=== PATIENT | female | born 1960 | race Caucasian/White ===

== ENCOUNTER 2016-05-14 01:33 | Inpatient (IN) | payer OTHER ==
[2016-05-14] VITALS (12 sets, daily range): BP systolic 124–137; BP diastolic 62–78; PULSE 68–95; RESP 16–20; Ht 177.8 cm; Wt 95.8 kg
[~2016-05-14] VITALS: Ht 177.8 cm; Wt 95.8 kg
[2016-05-14] MEDS ORDERED: CALCIUM CARBONATE 500 MG CHEW TAB PO PRN (03:00)
[2016-05-14] MEDS ORDERED: ACETAMINOPHEN 325 MG TAB PO PRN (03:00)
[2016-05-14] MEDS ORDERED: morphine 4 MG/ML VIAL IV PRN (03:00)
[2016-05-14] MEDS ORDERED: ONDANSETRON 4 MG INJ IV PRN (03:00)
[2016-05-14] MEDS ORDERED: IBUP800T25 PO (03:52)
[2016-05-14] MEDS ORDERED: VANCOMYCIN IV PER PHARMACY XX SCH (04:00)
[2016-05-14] MEDS: CEFTRIAXONE 1 GM/50 ML (PMX) 50 ML IVPB SCH ×2 (04:39→04:45)
[2016-05-14] MEDS ORDERED: VANCOMYCIN 2 GM in SOD CHLORIDE 0.9% 500 ML IVPB ONE (05:00)
[2016-05-14] MEDS ORDERED: VANCOMYCIN 1 GM in NS 250 ML IVPB SCH (05:00)
[2016-05-14 05:20] LABS: ALBUMIN 2.7 g/dl (3.3-4.9)
[2016-05-14 05:21] LABS: POTASSIUM 3.9 mmol/L (3.5-5.1)
[2016-05-14 05:23] LABS: ALBUMIN/GLOBULIN RATIO 0.9; BILIRUBIN,INDIRECT 0.1 mg/dl (0-1.1); BILIRUBIN,TOTAL 0.1 mg/dl (0.2-1.3); CALCIUM 8.4 mg/dl (8.4-10.2); CREATININE 0.66 mg/dl (0.44-1.00); TOTAL PROTEIN 5.7 g/dl (6.1-8.1)
[2016-05-14 06:14] LABS: EOSINOPHILS # 0.2 10^3/ul (0.0-0.5); EOSINOPHILS % 2.2 % (0.0-7.0); HEMATOCRIT 29.3 % (37.0-47.0); HEMOGLOBIN 9.5 g/dl (12.0-16.0); LYMPHOCYTES # 1.9 10^3/ul (0.8-2.9); LYMPHOCYTES % 17.8 % (15.0-51.0); MEAN CORPUSCULAR HGB CONC 32.5 g/dl (32.0-37.0); MEAN CORPUSCULAR VOLUME 76.9 fl (82.0-101.0); MEAN PLATELET VOLUME 9.1 fl (7.4-10.4); MONOCYTE # 0.9 10^3/ul (0.3-0.9); MONOCYTES % 7.8 % (0.0-11.0); NEUTROPHIL # 7.9 10^3/ul (1.6-7.5); NEUTROPHILS % 72.2 % (39.0-77.0); PLATELET COUNT 322 10^3/UL (140-440); RED BLOOD COUNT 3.81 10^6/ul (4.20-5.40); RED CELL DISTRIBUTION WIDTH 16.9 % (11.5-14.5); UNCORRECTED WBC 10.9 10^3/ul (4.8-10.8); WHITE BLOOD COUNT 10.9 10^3/ul (4.8-10.8)
[2016-05-14 06:18] LABS: CONDITION 1; LH ANALYZER COMMENTS 1
[2016-05-14 07:38] LABS: ADD UMIC YES; URINE BILIRUBIN (Dip) NEGATIVE (NEGATIVE); URINE BLOOD (Dip) 1+ (NEGATIVE); URINE COLOR LT. YELLOW (YELLOW); URINE GLUCOSE (Dip) NEGATIVE (NEGATIVE); URINE KETONES (Dip) NEGATIVE (NEGATIVE); URINE LEUKOCYTE ESTERASE (Dip) TRACE (NEGATIVE); URINE NITRITE (Dip) NEGATIVE (NEGATIVE); URINE TOTAL PROTEIN (Dip) NEGATIVE (NEGATIVE); URINE UROBILINOGEN (Dip) 0.2 E.U./dL (0.1-1.0)
[2016-05-14 08:07] LABS: BACTERIA,URINE FEW; URINE RBCS 0-2 /HPF (0)
[2016-05-14] MEDS: FAMOTIDINE 20 MG TAB PO SCH ×2 (09:27→21:17)
[2016-05-14] MEDS: ENOXAPARIN 40 MG/0.4 ML SYG SC SCH (09:32)
[2016-05-14 10:37] LABS: CHOL/HDL RATIO 4.2 RATIO
--- NOTE | 2016-05-14 12:53 | CONS ---
DATE OF ADMISSION: 05/14/2016 DATE OF CONSULTATION: 05/14/2016 TYPE OF CONSULTATION: Infectious Disease. REASON FOR CONSULTATION: Antibiotic management. HISTORY OF PRESENT ILLNESS: Junie Magdaleno is a 55-year-old female with a history of lupus erythe matosus sent to the emergency room complaining of right foot wound which is nonhealing. She complai ns of redness, swelling and pain in the right posterior foot and ankle. The patient states that she has a history of recurrent infections because of the lesions that occur as a result of her lupus in her lower extremities. She now has had evolution of a large nonhealing ulcerative wound on the kira k of her right foot with progressive redness, swelling, unresponsive to oral antibiotics. She denie s any fever or chills. Her symptoms have been worse over the last 3 or 4 days. She went to [facility] to be evaluated and was sent here to [facility]. PAST MEDICAL HISTORY: Operations: None. FAMILY HISTORY: Noncontributory. SOCIAL HISTORY: She does not smoke, drink or abuse drugs. ALLERGIES: NONE TO PENICILLIN, SULFA OR FOODS. MEDICATIONS: Per chart. REVIEW OF SYSTEMS: Noncontributory. PHYSICAL EXAMINATION: GENERAL: The patient is a well-developed, well-nourished female who is alert, responsive, in no acu te distress. VITAL SIGNS: Stable. She is afebrile. SKIN: Without generalized rash. HEENT: Within normal limits. NECK: Supple. LYMPH NODES: None palpable. CHEST: Decreased breath sounds at the bases. HEART: Without murmur or gallop. ABDOMEN: Soft, nontender, without organosplenomegaly or masses. EXTREMITIES: She has multiple lesions and blisters on the lower extremities without petechiae. The re is a large ulcerative wound approximately 3 x 5 cm in the posterior right ankle and calcaneus wit h purulence. There is swelling, redness and tenderness over the area. No evidence of excessive bru ising or lymphedema. LABORATORY DATA: As noted, the patient was transferred to our hospital. On admission, her white co unt was 10.9, H and H of 9.5 and 29.3, platelet count of 322,000. BUN and creatinine 11/0.66. Her urine shows trace leukocyte esterase, but only 0 to 2 white cells per high-power field. A culture o f the ankle is pending. PLAN: The patient was started on vancomycin and ceftriaxone. We will await the culture reports. S he should be seen by podiatry. I concur with the vancomycin and ceftriaxone for the time being. I will dictate my findings to the hospitalist. Dictated By: SOHEILA DELGADO MD, JD/DANILO Conf#: [id number] DID#: [id number]
[2016-05-14] MEDS: IBUPROFEN 400 MG TAB PO PRN (13:37)
--- NOTE | 2016-05-14 13:43 | PN ---
Date/Time of Note Date/Time of Note DATE: 05/14/16 TIME: 13:40 Assessment/Plan VTE Prophylaxis VTE Prophylaxis Intervention: LMWH Assessment/Plan Chief Complaint/Hosp Course Assessment and plan 1. Right lower extremity wound. Wound consult to follow. Follow-up with wound cultures. Continue antibiotics. ID consult following. Continue recommendations 2. History of lupus. Patient will follow up with her radio equipment installer as outpatient. DVT prophylaxis: Lovenox Disposition and plan: Continue with antibiotics. Follow-up on wound cultures. Await improvement of right lower extremity wound. Discussed plan of care with Problems: Subjective 24 Hr Interval Summary Free Text/Dictation No acute signs or symptoms of distress at this time Exam/Review of Systems Vital Signs Vitals Vital Signs Date Time Temp Pulse Resp B/P Pulse Ox O2 Delivery O2 Flow Rate FiO2 05/14/16 13:14 95 05/14/16 11:22 97.7 18 135/66 98 05/14/16 05:00 Room Air Intake and Output 05/13/16 05/13/16 05/14/16 15:00 23:00 07:00 Intake Total 650 ml Balance 650 ml Exam General: [No acute signs or symptoms of distress] Eyes: [pupils equal round, Anicteric sclera] Neck: Supple nontender, no JVD Cardiac: [S1, S2 auscultated, regular rhythm and rate] Pulmonary: [No coarse rhonchi or breathing auscultated] GI: [Abdomen soft nontender nondistended, bowel sounds active] Extremities: Edema seen bilateral lower extremities +3-+4 Skin: Erythema and scab seen on bilateral lower extremities. Open wound on right lower extremity Neurologic: [Alert to person place and time and situation] Results Result Diagram: 05/14/16 0425 05/14/16 0355 Results 24 hrs Laboratory Tests Test 05/14/16 03:55 05/14/16 04:25 05/14/16 05:35 Alanine Aminotransferase (ALT/SGPT) 31 Albumin 2.7 L Albumin/Globulin Ratio 0.90 Alkaline Phosphatase 91 Anion Gap 12 Aspartate Amino Transf (AST/SGOT) 21 Blood Urea Nitrogen 11 Calcium Level 8.4 Carbon Dioxide Level 24 Chloride Level 110 Creatinine 0.66 Direct Bilirubin 0.00 Globulin 3.00 Glucose Level 110 Indirect Bilirubin 0.1 Potassium Level 3.9 Sodium Level 142 Total Bilirubin 0.1 L Total Protein 5.7 L Basophils # 0.0 Basophils % 0.0 Blood Morphology Comment Cholesterol Level 145 Cholesterol/HDL Ratio 4.2 Eosinophils # 0.2 Eosinophils % 2.2 HDL Cholesterol 34 L Hematocrit 29.3 L Hemoglobin 9.5 L Hemoglobin A1c 5.3 LDL Cholesterol, Calculated 99 Lymphocytes # 1.9 Lymphocytes % 17.8 Mean Corpuscular Hemoglobin 25.0 L Mean Corpuscular Hemoglobin Concent 32.5 Mean Corpuscular Volume 76.9 L Mean Platelet Volume 9.1 Monocytes # 0.9 Monocytes % 7.8 Neutrophils # 7.9 H Neutrophils % 72.2 Nucleated Red Blood Cells # 0.0 Nucleated Red Blood Cells % 0.0 Platelet Count 322 Red Blood Count 3.81 L Red Cell Distribution Width 16.9 H Triglycerides Level 60 White Blood Count 10.9 H Urine Bacteria FEW Urine Bilirubin NEGATIVE Urine Clarity CLEAR Urine Color LT. YELLOW Urine Epithelial Cells FEW Urine Glucose NEGATIVE Urine Hemoglobin 1+ H Urine Ketones NEGATIVE Urine Leukocyte Esterase TRACE H Urine Microscopic RBC 0-2 Urine Microscopic WBC 0-2 Urine Nitrite NEGATIVE Urine Specific [place] <=1.005 L Urine Total Protein NEGATIVE Urine Urobilinogen 0.2 E.U./dL Urine pH 6.0 Medications Medications Current Medications Ceftriaxone Sodium (Rocephin) 50 ml @ 100 mls/hr Q12H IVPB Last administered on 05/14/16 04:45; Admin Dose 100 MLS/HR; Start 05/14/16 at 04:00 Morphine Sulfate (morphine) 3 mg Q4H PRN IV PAIN LEVEL 6-10; Start 05/14/16 at 03:00 Acetaminophen (Tylenol Tab) 650 mg Q6H PRN PO PAIN AND OR ELEVATED TEMP Last administered on 05/14/16 04:52; Admin Dose 650 MG; Start 05/14/16 at 03:00 Ondansetron HCl (Zofran Inj) 4 mg Q6H PRN IV NAUSEA AND/OR VOMITING; Start at 03:00 Enoxaparin Sodium (Lovenox) 40 mg DAILY SC Last administered on 05/14/16 09:32 ; Admin Dose 40 MG; Start 05/14/16 at 09:00 Famotidine (Pepcid) 20 mg BID PO Last administered on 05/14/16 09:27; Admin Dose 20 MG; Start 05/14/16 at 09:00 Calcium Carbonate (Tums) 500 mg Q6H PRN PO GASTROINTESTINAL UPSET; Start at 03:00 Miscellaneous Information (*Rx Drug Level Order Reminder*) VANCO TR LEVEL PRIOR... ONCE ONCE XX ; Start 05/15/16 at 16:00; Stop 05/15/16 at 16:01 Ibuprofen (Motrin) 400 mg Q6H PRN PO PAIN OR TEMP ABOVE 38C Last administered on 05/14/16t 13:37; Admin Dose 400 MG; Start 05/14/16 at 13:30 MO SCHNEIDER May 14, 2016 13:43
--- NOTE | 2016-05-14 16:14 | HP ---
Date/Time of Note Date/Time of Note DATE: 05/14/16 TIME: 16:04 Assessment/Plan VTE Prophylaxis VTE Prophylaxis Intervention: heparin Assessment/Plan Assessment/Plan 1. Lower ext Cellulitis/wound, recurrent - abx - f/u culture results - ID consult - pain mgmt 2. Hx of SLE - will check C3 and C4 along with DsDNA to evaluate if her Lupus is flaring-up - outpt f/u with her Clinical Radiologist HPI/ROS Admit Date/Time Admit Date/Time May 14, 2016 at 01:36 Hx of Present Illness This is a 55 yo female with hx of SLE, not on any meds who initially presented to [facility] c/o recurrent right lower ext infection. she was transferred to [facility] for insurance reason. She attributed the recurrent nature of the infections to her lupus. She said she also had similar problem on her left leg, which is healing. She reported only minimal right lower ext pain with movement. denied fever, chills, N/V, CP or SOB. . PMH/Family/Social Past Medical History Medical History: other (SLE) Past Surgical History Past Surgical Hx: no surgical history Social History Alcohol Use: none Smoking Status: Never smoker Drug Use: none Exam/Review of Systems Vital Signs Vitals Vital Signs Date Time Temp Pulse Resp B/P Pulse Ox O2 Delivery O2 Flow Rate FiO2 05/14/16 15:46 98.0 78 19 124/70 97 05/14/16 05:00 Room Air Intake and Output 05/13/16 05/13/16 05/14/16 15:00 23:00 07:00 Intake Total 650 ml Balance 650 ml Exam Constitutional: alert, oriented, well developed Head: atraumatic, normocephalic Eyes: EOMI, PERRL Neck: non-tender, supple Respiratory: clear to auscultation, normal air movement Cardiovascular: nl pulses, regular rate and rhythm Gastrointestinal: non-tender, soft Extremities: other (right man with 4x5 cm wound with minimal drainage . there are scattered slightly erythematous macular lesions) Labs Result Diagram: 05/14/16 0425 05/14/16 0355 Medications Medications Current Medications Ceftriaxone Sodium (Rocephin) 50 ml @ 100 mls/hr Q12H IVPB Last administered on 05/14/16t 04:45; Admin Dose 100 MLS/HR; Start 05/14/16 at 04:00 Morphine Sulfate (morphine) 3 mg Q4H PRN IV PAIN LEVEL 6-10; Start 05/14/16 at 03:00 Acetaminophen (Tylenol Tab) 650 mg Q6H PRN PO PAIN AND OR ELEVATED TEMP Last administered on 05/14/16 04:52; Admin Dose 650 MG; Start 05/14/16 at 03:00 Ondansetron HCl (Zofran Inj) 4 mg Q6H PRN IV NAUSEA AND/OR VOMITING; Start at 03:00 Enoxaparin Sodium (Lovenox) 40 mg DAILY SC Last administered on 05/14/16 09:32 ; Admin Dose 40 MG; Start 05/14/16 at 09:00 Famotidine (Pepcid) 20 mg BID PO Last administered on 05/14/16 09:27; Admin Dose 20 MG; Start 05/14/16 at 09:00 Calcium Carbonate (Tums) 500 mg Q6H PRN PO GASTROINTESTINAL UPSET; Start at 03:00 Miscellaneous Information (*Rx Drug Level Order Reminder*) VANCO TR LEVEL PRIOR... ONCE ONCE XX ; Start 05/15/16 at 16:00; Stop 05/15/16 at 16:01 Ibuprofen (Motrin) 400 mg Q6H PRN PO PAIN OR TEMP ABOVE 38C Last administered on 05/14/16 13:37; Admin Dose 400 MG; Start 05/14/16 at 13:30 MICAH ELLIS MD May 14, 2016 16:14
[2016-05-15] MEDS: CEFTRIAXONE 1 GM/50 ML (PMX) 50 ML IVPB SCH ×2 (04:27→16:07)
[2016-05-15 05:41] LABS: BASOPHILS % 0.3 % (0.0-2.0); EOSINOPHILS # 0.3 10^3/ul (0.0-0.5); EOSINOPHILS % 2.9 % (0.0-7.0); HEMATOCRIT 29.9 % (37.0-47.0); LYMPHOCYTES # 2.6 10^3/ul (0.8-2.9); LYMPHOCYTES % 27.6 % (15.0-51.0); MEAN CORPUSCULAR HEMOGLOBIN 25.5 pg (29.0-33.0); MEAN CORPUSCULAR HGB CONC 33.3 g/dl (32.0-37.0); MEAN CORPUSCULAR VOLUME 76.4 fl (82.0-101.0); MEAN PLATELET VOLUME 9.3 fl (7.4-10.4); MONOCYTE # 0.8 10^3/ul (0.3-0.9); MONOCYTES % 8.7 % (0.0-11.0); NEUTROPHIL # 5.8 10^3/ul (1.6-7.5); NEUTROPHILS % 60.5 % (39.0-77.0); PLATELET COUNT 316 10^3/UL (140-440); RED BLOOD COUNT 3.92 10^6/ul (4.20-5.40); RED CELL DISTRIBUTION WIDTH 16.6 % (11.5-14.5); UNCORRECTED WBC 9.5 10^3/ul (4.8-10.8); WHITE BLOOD COUNT 9.5 10^3/ul (4.8-10.8)
[2016-05-15 05:47] LABS: CONDITION 1; LH ANALYZER COMMENTS 1
[2016-05-15 06:21] LABS: ALBUMIN 2.8 g/dl (3.3-4.9); POTASSIUM 3.9 mmol/L (3.5-5.1)
[2016-05-15 06:24] LABS: BILIRUBIN,INDIRECT 0.1 mg/dl (0-1.1); BILIRUBIN,TOTAL 0.1 mg/dl (0.2-1.3); CREATININE 0.57 mg/dl (0.44-1.00)
[2016-05-15 06:25] LABS: CALCIUM 8.5 mg/dl (8.4-10.2)
[2016-05-15 07:26] VITALS: BP 133/71; RESP 16
[2016-05-15] MEDS: FAMOTIDINE 20 MG TAB PO SCH ×2 (08:54→20:09)
[2016-05-15] MEDS: VANCOMYCIN 1.5 GM in SOD CHLORIDE 0.9% 250 ML IVPB SCH ×2 (10:39→22:38)
[2016-05-15] MEDS: ENOXAPARIN 40 MG/0.4 ML SYG SC SCH (10:54)
--- NOTE | 2016-05-15 13:26 | PN ---
DATE: 05/15/2016 SUBJECTIVE: No acute changes. The patient is alert, sitting up in bed, looks comfortable, swelling of her lower extremity is improving. Pain also improved. LABORATORY: WBC today 9.5, no bands. BUN 11, creatinine 0.57. MICROBIOLOGY: Wound culture of her right ankle growing gram-negative rods, preliminary blood cultur es have been negative. ANTIMICROBIALS: The patient is on: 1. Vancomycin. 2. Rocephin. PHYSICAL EXAMINATION: GENERAL: Well-developed, middle-aged woman who is alert, in no distress. HEENT: Head atraumatic, normocephalic. Sclerae anicteric. Buccal mucosa pink. NECK: Supple. CHEST: Rise symmetrical. Breath sounds clear. HEART: S1, S2. ABDOMEN: Soft. Bowel tones present. EXTREMITIES: Without cyanosis. Bilateral lower extremities dressing intact. ASSESSMENT: 1. Right lower extremity nonhealing wound with culture growing gram-negative rods. 2. History of systemic lupus erythematosus. 3. Systemic inflammatory response syndrome. PLAN: The patient remains stable. Symptomatically improved. She is on broad spectrum antibiotics. Cultures are pending. We will order nares swab for MRSA. Of note, her urinalysis was positive on admission for trace leukocyte esterase. We will also order urine culture. Dictated By: RAHUL MATTHEWS DRIVER GUARD for SOHEILA RODRIGUEZ/DANILO Conf#: [id number] DID#: [id number]
--- NOTE | 2016-05-15 13:51 | PN ---
Date/Time of Note Date/Time of Note DATE: 05/15/16 TIME: 13:49 Assessment/Plan VTE Prophylaxis VTE Prophylaxis Intervention: LMWH Lines/Catheters [facility] Saline Lock Assessment/Plan Chief Complaint/Hosp Course Assessment and plan 1. Right lower extremity wound. Wound consult to follow. Follow-up with wound culture.. Continue on antibiotics. ID consult following. Continue recommendations 2. History of lupus. Patient will follow up with her entry level administrative assistant as outpatient. 3. Positive leukocyte esterase test. Urine culture to follow. Continue with antibiotics per ID recommendations DVT prophylaxis: Lovenox Disposition and plan: Continue with antibiotics. Follow-up on wound cultures. Discharge him medically stable and cleared by consultants Discussed plan of care with Problems: Subjective 24 Hr Interval Summary Free Text/Dictation No apparent distress. Comfortable Exam/Review of Systems Vital Signs Vitals Vital Signs Date Time Temp Pulse Resp B/P Pulse Ox O2 Delivery O2 Flow Rate FiO2 05/15/16 07:26 97.9 81 16 133/71 100 05/14/16 23:30 Room Air Intake and Output 05/14/16 05/14/16 05/15/16 14:59 22:59 06:59 Intake Total 250 ml 660 ml 530 ml Balance 250 ml 660 ml 530 ml Exam General: No acute signs or symptoms of distress Eyes: pupils equal round, Anicteric sclera Neck: Supple nontender, no JVD Cardiac: S1, S2 auscultated, regular rhythm and rate Pulmonary: No coarse rhonchi or breathing auscultated GI: Abdomen soft nontender nondistended, bowel sounds active Extremities: Edema seen bilateral lower extremities +3-+4 Skin: Erythema and scab seen on bilateral lower extremities. Open wound on right lower extremity Neurologic: Alert to person place and time and situation Results Result Diagram: 05/15/165 05/15/16 0425 Results 24 hrs Laboratory Tests Test 05/15/16 04:25 Alanine Aminotransferase (ALT/SGPT) 31 Albumin 2.8 L Alkaline Phosphatase 98 Anion Gap 16 Aspartate Amino Transf (AST/SGOT) 24 Basophils # 0.0 Basophils % 0.3 Blood Morphology Comment Blood Urea Nitrogen 11 Calcium Level 8.5 Carbon Dioxide Level 24 Chloride Level 106 Creatinine 0.57 Direct Bilirubin 0.00 Eosinophils # 0.3 Eosinophils % 2.9 Glucose Level 86 Hematocrit 29.9 L Hemoglobin 10.0 L Indirect Bilirubin 0.1 Lymphocytes # 2.6 Lymphocytes % 27.6 Mean Corpuscular Hemoglobin 25.5 L Mean Corpuscular Hemoglobin Concent 33.3 Mean Corpuscular Volume 76.4 L Mean Platelet Volume 9.3 Monocytes # 0.8 Monocytes % 8.7 Neutrophils # 5.8 Neutrophils % 60.5 Nucleated Red Blood Cells # 0.0 Nucleated Red Blood Cells % 0.0 Platelet Count 316 Potassium Level 3.9 Red Blood Count 3.92 L Red Cell Distribution Width 16.6 H Sodium Level 142 Total Bilirubin 0.1 L Total Protein 6.0 L White Blood Count 9.5 Medications Medications Current Medications Ceftriaxone Sodium (Rocephin) 50 ml @ 100 mls/hr Q12H IVPB Last administered on 05/15/16 04:27; Admin Dose 100 MLS/HR; Start 05/14/16 at 04:00 Morphine Sulfate (morphine) 3 mg Q4H PRN IV PAIN LEVEL 6-10; Start 05/14/16 at 03:00 Acetaminophen (Tylenol Tab) 650 mg Q6H PRN PO PAIN AND OR ELEVATED TEMP Last administered on 05/14/16 04:52; Admin Dose 650 MG; Start 05/14/16 at 03:00 Ondansetron HCl (Zofran Inj) 4 mg Q6H PRN IV NAUSEA AND/OR VOMITING; Start at 03:00 Enoxaparin Sodium (Lovenox) 40 mg DAILY SC Last administered on 05/15/16 10:54 ; Admin Dose 40 MG; Start 05/14/16 at 09:00 Famotidine (Pepcid) 20 mg BID PO Last administered on 05/15/16 08:54; Admin Dose 20 MG; Start 05/14/16 at 09:00 Calcium Carbonate (Tums) 500 mg Q6H PRN PO GASTROINTESTINAL UPSET; Start at 03:00 Ibuprofen 400 mg 400 mg Q6H PRN PO PAIN OR TEMP ABOVE 38C Last administered on 05/14/16 13:37; Admin Dose 400 MG; Start 05/14/16 at 13:30 Vancomycin HCl/ Sodium Chloride (Vancocin/NS) 250 ml @ 83.333 mls/ hr Q12H IVPB Last administered on 05/15/16 10:39; Admin Dose 83.333 MLS/HR; Start at 10:30 Mupirocin (Bactroban) 1 applic AM TOP ; Start 05/16/16 at 09:00 MO SCHNEIDER May 15, 2016 13:51
[2016-05-15] MEDS: IBUPROFEN 400 MG TAB PO PRN (15:02)
[2016-05-15 19:24] VITALS: BP 136/74; RESP 19
[2016-05-16] MEDS: CEFTRIAXONE 1 GM/50 ML (PMX) 50 ML IVPB SCH (04:10)
[2016-05-16 07:06] LABS: BASOPHILS % 0.5 % (0.0-2.0); EOSINOPHILS # 0.2 10^3/ul (0.0-0.5); EOSINOPHILS % 2.3 % (0.0-7.0); HEMATOCRIT 30.6 % (37.0-47.0); LYMPHOCYTES # 2.2 10^3/ul (0.8-2.9); LYMPHOCYTES % 23.8 % (15.0-51.0); MEAN CORPUSCULAR HEMOGLOBIN 25.1 pg (29.0-33.0); MEAN CORPUSCULAR HGB CONC 32.7 g/dl (32.0-37.0); MEAN CORPUSCULAR VOLUME 76.7 fl (82.0-101.0); MEAN PLATELET VOLUME 8.8 fl (7.4-10.4); MONOCYTE # 0.7 10^3/ul (0.3-0.9); MONOCYTES % 8.1 % (0.0-11.0); NEUTROPHILS % 65.3 % (39.0-77.0); PLATELET COUNT 315 10^3/UL (140-440); RED BLOOD COUNT 3.99 10^6/ul (4.20-5.40); RED CELL DISTRIBUTION WIDTH 16.9 % (11.5-14.5); UNCORRECTED WBC 9.3 10^3/ul (4.8-10.8); WHITE BLOOD COUNT 9.3 10^3/ul (4.8-10.8)
[2016-05-16 07:14] LABS: CONDITION 1; LH ANALYZER COMMENTS 1
[2016-05-16 07:30] LABS: POTASSIUM 3.7 mmol/L (3.5-5.1)
[2016-05-16 07:33] LABS: CALCIUM 8.2 mg/dl (8.4-10.2); CREATININE 0.53 mg/dl (0.44-1.00)
[2016-05-16 07:50] VITALS: BP 134/63; RESP 16
[2016-05-16] MEDS: FAMOTIDINE 20 MG TAB PO SCH ×2 (08:47→20:50)
[2016-05-16] MEDS: ENOXAPARIN 40 MG/0.4 ML SYG SC SCH (08:50)
[2016-05-16] MEDS: VANCOMYCIN 1.5 GM in SOD CHLORIDE 0.9% 250 ML IVPB SCH (10:56)
[2016-05-16] MEDS: MUPIROCIN 2% 22 GM OINT TOP SCH (10:56)
[2016-05-16 12:31] LABS: COMPLEMENT C3 85 mg/dl (88-165); COMPLEMENT C4 22 mg/dl (14-44)
--- NOTE | 2016-05-16 14:06 | CONS ---
Date/Time of Note Date/Time of Note DATE: 05/16/16 TIME: 14:05 Assessment/Plan Assessment/Plan Chief Complaint/Hosp Course SUBJECTIVE: No acute changes. The patient is alert, sitting up in bed, looks comfortable, swelling of her lower extremity is improving. MICROBIOLOGY: Wound culture of her right ankle E coli, blood cultures have been negative. ANTIMICROBIALS: The patient is on: 1. Vancomycin. 2. Rocephin. PHYSICAL EXAMINATION: GENERAL: Well-developed, middle-aged woman who is alert, in no distress. HEENT: Head atraumatic, normocephalic. Sclerae anicteric. Buccal mucosa pink. NECK: Supple. CHEST: Rise symmetrical. Breath sounds clear. HEART: S1, S2. ABDOMEN: Soft. Bowel tones present. EXTREMITIES: Without cyanosis. Bilateral lower extremities dressing intact. ASSESSMENT: 1. Right lower extremity nonhealing wound with culture growing gram-negative rods. 2. History of systemic lupus erythematosus. 3. Systemic inflammatory response syndrome. PLAN: The patient remains stable. RLE looks better, will change abx to Levaquin for 7-10 days DW staff Problems: Consultation Date/Type/Reason Admit Date/Time May 14, 2016 at 01:36 Initial Consult Date Type of Consultation: ID Exam/Review of Systems Vital Signs Vitals Vital Signs Date Time Temp Pulse Resp B/P Pulse Ox O2 Delivery O2 Flow Rate FiO2 05/16/16 07:50 97.7 77 16 134/63 98 05/14/16 23:30 Room Air Intake and Output 05/15/16 05/15/16 05/16/16 15:00 23:00 07:00 Intake Total 250 ml 1030 ml 1000 ml Balance 250 ml 1030 ml 1000 ml Results Result Diagram: 05/16/16 0624 05/16/16 0624 Results 24 hrs Laboratory Tests Test 05/16/16 06:24 Anion Gap 14 Basophils # 0.0 Basophils % 0.5 Blood Morphology Comment Blood Urea Nitrogen 9 C-Reactive Protein 0.7 Calcium Level 8.2 L Carbon Dioxide Level 24 Chloride Level 107 Complement C3 85 L Complement C4 22 Creatinine 0.53 Eosinophils # 0.2 Eosinophils % 2.3 Erythrocyte Sedimentation Rate 27.0 Glucose Level 84 Hematocrit 30.6 L Hemoglobin 10.0 L Lymphocytes # 2.2 Lymphocytes % 23.8 Mean Corpuscular Hemoglobin 25.1 L Mean Corpuscular Hemoglobin Concent 32.7 Mean Corpuscular Volume 76.7 L Mean Platelet Volume 8.8 Monocytes # 0.7 Monocytes % 8.1 Neutrophils # 6.0 Neutrophils % 65.3 Nucleated Red Blood Cells # 0.0 Nucleated Red Blood Cells % 0.0 Platelet Count 315 Potassium Level 3.7 Red Blood Count 3.99 L Red Cell Distribution Width 16.9 H Sodium Level 141 White Blood Count 9.3 Medications Medications Current Medications Ceftriaxone Sodium (Rocephin) 50 ml @ 100 mls/hr Q12H IVPB Last administered on 05/16/16 04:10; Admin Dose 100 MLS/HR; Start 05/14/16 at 04:00 Morphine Sulfate (morphine) 3 mg Q4H PRN IV PAIN LEVEL 6-10; Start 05/14/16 at 03:00 Acetaminophen (Tylenol Tab) 650 mg Q6H PRN PO PAIN AND OR ELEVATED TEMP Last administered on 05/14/16 04:52; Admin Dose 650 MG; Start 05/14/16 at 03:00 Ondansetron HCl (Zofran Inj) 4 mg Q6H PRN IV NAUSEA AND/OR VOMITING; Start at 03:00 Enoxaparin Sodium (Lovenox) 40 mg DAILY SC Last administered on 05/16/16 08:50 ; Admin Dose 40 MG; Start 05/14/16 at 09:00 Famotidine (Pepcid) 20 mg BID PO Last administered on 05/16/16 08:47; Admin Dose 20 MG; Start 05/14/16 at 09:00 Calcium Carbonate (Tums) 500 mg Q6H PRN PO GASTROINTESTINAL UPSET; Start at 03:00 Ibuprofen 400 mg 400 mg Q6H PRN PO PAIN OR TEMP ABOVE 38C Last administered on 05/15/16 15:02; Admin Dose 400 MG; Start 05/14/16 at 13:30 Vancomycin HCl/ Sodium Chloride (Vancocin/NS) 250 ml @ 83.333 mls/ hr Q12H IVPB Last administered on 05/16/16 10:56; Admin Dose 83.333 MLS/HR; Start at 10:30 Mupirocin (Bactroban) 1 applic AM TOP Last administered on 2/18/17at 10:56; Admin Dose 1 APPLIC; Start 05/16/16 at 09:00 Miscellaneous Information (*Rx Drug Level Order Reminder*) VANCOMYCIN TROUGH AT 2130 ONCE ONCE XX ; Start 05/16/16 at 21:30; Stop 05/16/16 at 21:31 RAHUL MATTHEWS NP May 16, 2016 14:06
--- NOTE | 2016-05-16 15:41 | PN ---
Date/Time of Note Date/Time of Note DATE: 05/16/16 TIME: 15:40 Assessment/Plan VTE Prophylaxis VTE Prophylaxis Intervention: LMWH Lines/Catheters IV Catheter Type (from Nrs): Peripheral IV Assessment/Plan Chief Complaint/Hosp Course Assessment and plan 1. Right lower extremity wound. Wound consult to follow. Follow-up with wound cultures. Continue antibiotics. ID consult following. Continue recommendations. Podiatry to follow for wound care 2. History of lupus. Patient will follow up with her contact lens lathe operator as outpatient. 3. UTI with Escherichia coli. ABX per ID DVT prophylaxis: Lovenox Disposition and plan: Appears to be improving. await podiatry input. cont abx. d /c when cleared by consultants . Discussed plan of care with Problems: Subjective 24 Hr Interval Summary Free Text/Dictation no s/s of distress. comfortable at this time Exam/Review of Systems Vital Signs Vitals Vital Signs Date Time Temp Pulse Resp B/P Pulse Ox O2 Delivery O2 Flow Rate FiO2 05/16/16 07:50 97.7 77 16 134/63 98 05/14/16 23:30 Room Air Intake and Output 05/15/16 05/15/16 05/16/16 15:00 23:00 07:00 Intake Total 250 ml 1030 ml 1000 ml Balance 250 ml 1030 ml 1000 ml Exam General: No acute signs or symptoms of distress Eyes: pupils equal round, Anicteric sclera Neck: Supple nontender, no JVD Cardiac: S1, S2 auscultated, regular rhythm and rate Pulmonary: No coarse rhonchi or breathing auscultated GI: Abdomen soft nontender nondistended, bowel sounds active Extremities: Edema seen bilateral lower extremities +3-+4 Skin: Erythema and scab seen on bilateral lower extremities. Open wound on right lower extremity Neurologic: Alert to person place and time and situation Results Result Diagram: 05/16/16 0624 05/16/16 0624 Results 24 hrs Laboratory Tests Test 05/16/16 06:24 Anion Gap 14 Basophils # 0.0 Basophils % 0.5 Blood Morphology Comment Blood Urea Nitrogen 9 C-Reactive Protein 0.7 Calcium Level 8.2 L Carbon Dioxide Level 24 Chloride Level 107 Complement C3 85 L Complement C4 22 Creatinine 0.53 Eosinophils # 0.2 Eosinophils % 2.3 Erythrocyte Sedimentation Rate 27.0 Glucose Level 84 Hematocrit 30.6 L Hemoglobin 10.0 L Lymphocytes # 2.2 Lymphocytes % 23.8 Mean Corpuscular Hemoglobin 25.1 L Mean Corpuscular Hemoglobin Concent 32.7 Mean Corpuscular Volume 76.7 L Mean Platelet Volume 8.8 Monocytes # 0.7 Monocytes % 8.1 Neutrophils # 6.0 Neutrophils % 65.3 Nucleated Red Blood Cells # 0.0 Nucleated Red Blood Cells % 0.0 Platelet Count 315 Potassium Level 3.7 Red Blood Count 3.99 L Red Cell Distribution Width 16.9 H Sodium Level 141 White Blood Count 9.3 Medications Medications Current Medications Morphine Sulfate (morphine) 3 mg Q4H PRN IV PAIN LEVEL 6-10; Start 05/14/16 at 03:00 Acetaminophen (Tylenol Tab) 650 mg Q6H PRN PO PAIN AND OR ELEVATED TEMP Last administered on 05/14/16 04:52; Admin Dose 650 MG; Start 05/14/16 at 03:00 Ondansetron HCl (Zofran Inj) 4 mg Q6H PRN IV NAUSEA AND/OR VOMITING; Start at 03:00 Enoxaparin Sodium (Lovenox) 40 mg DAILY SC Last administered on 05/16/16 08:50 ; Admin Dose 40 MG; Start 05/14/16 at 09:00 Famotidine (Pepcid) 20 mg BID PO Last administered on 05/16/16 08:47; Admin Dose 20 MG; Start 05/14/16 at 09:00 Calcium Carbonate (Tums) 500 mg Q6H PRN PO GASTROINTESTINAL UPSET; Start at 03:00 Ibuprofen (Motrin) 400 mg Q6H PRN PO PAIN OR TEMP ABOVE 38C Last administered on 05/15/16 15:02; Admin Dose 400 MG; Start 05/14/16 at 13:30 Mupirocin (Bactroban) 1 applic AM TOP Last administered on 05/16/16 10:56; Admin Dose 1 APPLIC; Start 05/16/16 at 09:00 Levofloxacin (Levaquin) 500 mg DAILY@06 PO ; Start 05/17/16 at 06:00 MO SCHNEIDER May 16, 2016 15:41
[2016-05-16] MEDS ORDERED: MUPI22OI2 TOP (15:43)
[2016-05-16] MEDS ORDERED: LEVO500T72 PO (15:43)
--- NOTE | 2016-05-16 15:46 | PDOCDIS ---
Discharge Instructions DIAGNOSIS Discharge Diagnosis: 1. Right lower extremity 12. History of lupus 3. UTI CONDITION Patient Condition: Stable HOME CARE INSTRUCTIONS: Diet Instructions: Reduced CalorieSpecial Diet: Regular FOLLOW UP/APPOINTMENTS Appointments 1. Follow-up with her planning analyst within a week 2. Follow-up with her primary care provider much 2 weeks 3. Follow up with Dr. Vic Schmitz in 1-2 weeks: Office Telephone: [phone] OTHER ORDERS: Other Orders: Treatment Recommendations For open scattered wound and open scabs X2: cleanse with normal saline, pat dry, Apply Mupirocin , then adaptic, wrap with Kerlix daily MO SCHNEIDER May 16, 2016 15:46
[2016-05-16 19:58] VITALS: BP 123/63; RESP 17
--- NOTE | 2016-05-16 23:50 | PN ---
Date/Time of Note Date/Time of Note DATE: 05/16/16 TIME: 23:49 Assessment/Plan Lines/Catheters IV Catheter Type (from [facility]): Saline Lock Exam/Review of Systems Vital Signs Vitals Vital Signs Date Time Temp Pulse Resp B/P Pulse Ox O2 Delivery O2 Flow Rate FiO2 05/16/16 19:58 98.7 75 17 123/63 98 05/14/16 23:30 Room Air Intake and Output 05/15/16 05/15/16 05/16/16 15:00 23:00 07:00 Intake Total 250 ml 1030 ml 1000 ml Balance 250 ml 1030 ml 1000 ml Results Result Diagram: 05/16/16 0624 05/16/16 0624 SINDHU GRIMES DPM May 16, 2016 23:49
[2016-05-17] MEDS ORDERED: LEVOFLOXACIN 500 MG TAB PO SCH (06:00)
[2016-05-17 08:29] LABS: BASOPHILS % 0.6 % (0.0-2.0); EOSINOPHILS # 0.2 10^3/ul (0.0-0.5); EOSINOPHILS % 2.3 % (0.0-7.0); HEMATOCRIT 35.3 % (37.0-47.0); HEMOGLOBIN 11.5 g/dl (12.0-16.0); LYMPHOCYTES # 2.2 10^3/ul (0.8-2.9); LYMPHOCYTES % 27.5 % (15.0-51.0); MEAN CORPUSCULAR HGB CONC 32.6 g/dl (32.0-37.0); MEAN CORPUSCULAR VOLUME 76.6 fl (82.0-101.0); MEAN PLATELET VOLUME 9.1 fl (7.4-10.4); MONOCYTE # 0.6 10^3/ul (0.3-0.9); MONOCYTES % 7.4 % (0.0-11.0); NEUTROPHIL # 5.1 10^3/ul (1.6-7.5); NEUTROPHILS % 62.2 % (39.0-77.0); PLATELET COUNT 339 10^3/UL (140-440); RED BLOOD COUNT 4.61 10^6/ul (4.20-5.40); RED CELL DISTRIBUTION WIDTH 16.7 % (11.5-14.5); UNCORRECTED WBC 8.2 10^3/ul (4.8-10.8); WHITE BLOOD COUNT 8.2 10^3/ul (4.8-10.8)
[2016-05-17 08:33] VITALS: BP 128/60; RESP 16
[2016-05-17 08:38] LABS: CREATININE 0.53 mg/dl (0.44-1.00)
[2016-05-17 08:39] LABS: CALCIUM 8.9 mg/dl (8.4-10.2)
[2016-05-17 08:42] LABS: CONDITION 1; LH ANALYZER COMMENTS 1
[2016-05-17] MEDS: FAMOTIDINE 20 MG TAB PO SCH (09:02)
[2016-05-17] MEDS: MUPIROCIN 2% 22 GM OINT TOP SCH (09:03)
[2016-05-17] MEDS: ENOXAPARIN 40 MG/0.4 ML SYG SC SCH (09:06)
[2016-05-17] MEDS: IBUPROFEN 400 MG TAB PO PRN (09:08)
--- NOTE | 2016-05-17 15:05 | DS ---
Date/Time of Note Date/Time of Note DATE: 05/17/16 TIME: 15:02 Discharge Summary Admission/Discharge Info Admit Date/Time May 14, 2016 at 01:36 Discharge Date/Time May 17, 2016 at 13:05 Final Diagnosis 1. Right lower extremity wound. 2. History of lupus. 3. UTI with Escherichia coli. Patient Condition: Stable Consults 1. Dr. Tyrone Saenz 2. Dr. Vic Schmitz Hospital Course This 55 of female with history of SLE who came to [facility] secondary to right lower extremity infection. Patient did report that she has had similar symptoms on her left leg and this is secondary to her history of lupus. She does report that she does follow-up with outpatient nanotechnologist. She was seen by infectious disease physician as well as by wound care consult and podiatry. Patient did have Escherichia coli in her wound and she was placed on appropriate antibiotics per ID recommendations. She also had UTI and was placed on antibiotics. During the course of stay she did improve. She did have good response antibiotic therapy. She was continued on wound care per podiatry and wound care consult recommendations. She was instructed to follow-up with her outpatient nanotechnologist for management of her lupus. The plan of care was discussed with the patient and patient did verbalize her understanding. On the day of discharge patient was in stable condition Discussed plan of care with Dr. Owens Discharge process time is 40 minutes Disposition: Home Home Meds Active Scripts Mupirocin* (Bactroban*) 2% -22 Gram Oint...g., 1 APPLIC TOP AM for 14 Days Prov:MO SCHNEIDER 05/16/16 Levofloxacin* (Levaquin*) 500 Mg Tablet, 500 MG PO DAILY@06 for 10 Days, TAB Prov:MO SCHNEIDER 05/16/16 Reported Medications Ibuprofen* (Ibuprofen*) 800 Mg Tab, 800 MG PO Q6H Y for PAIN, TAB 05/14/16 Follow-up Plan CONDITION Patient Condition: Stable HOME CARE INSTRUCTIONS: Diet Instructions: Reduced CalorieSpecial Diet: Regular FOLLOW UP/APPOINTMENTS Appointments 1. Follow-up with her test evaluator within a week 2. Follow-up with her primary care provider much 2 weeks 3. Follow up with Dr. Vic Schmitz in 1-2 weeks: Office Telephone: OTHER ORDERS: Other Orders: Treatment Recommendations For open scattered wound and open scabs X2: cleanse with normal saline, pat dry, Apply Mupirocin , then adaptic, wrap with Kerlix daily Pending Labs Laboratory Tests Test 05/17/16 07:56 Anion Gap 16 (8-16) Basophils # 0.010^3/ul (0.0-0.1) Basophils % 0.6% (0.0-2.0) Blood Morphology Comment Blood Urea Nitrogen 12mg/dl (7-20) Calcium Level 8.9mg/dl (8.4-10.2) Carbon Dioxide Level 23mmol/L (21-31) Chloride Level 106mmol/L (97-110) Creatinine 0.53mg/dl (0.44-1.00) Eosinophils # 0.210^3/ul (0.0-0.5) Eosinophils % 2.3% (0.0-7.0) Glucose Level 89mg/dl (70-220) Hematocrit 35.3% (37.0-47.0) Hemoglobin 11.5g/dl (12.0-16.0) Lymphocytes # 2.210^3/ul (0.8-2.9) Lymphocytes % 27.5% (15.0-51.0) Mean Corpuscular Hemoglobin 25.0pg (29.0-33.0) Mean Corpuscular Hemoglobin Concent 32.6g/dl (32.0-37.0) Mean Corpuscular Volume 76.6fl (82.0-101.0) Mean Platelet Volume 9.1fl (7.4-10.4) Monocytes # 0.610^3/ul (0.3-0.9) Monocytes % 7.4% (0.0-11.0) Neutrophils # 5.110^3/ul (1.6-7.5) Neutrophils % 62.2% (39.0-77.0) Nucleated Red Blood Cells # 0.010^3/ul (0.0-0.0) Nucleated Red Blood Cells % 0.0/100WBC (0.0-0.0) Platelet Count 11987^3/UL (140-440) Potassium Level 4.0mmol/L (3.5-5.1) Red Blood Count 4.6110^6/ul (4.20-5.40) Red Cell Distribution Width 16.7% (11.5-14.5) Sodium Level 141mmol/L (135-144) White Blood Count 8.210^3/ul (4.8-10.8) MO SCHNEIDER May 17, 2016 15:05
== END 2016-05-17 13:05 | disposition home or self-care (01) | DRG 603 ==
LOC: TEL 01:36 → MS1 23:40
PROVIDERS: ADMIT Internal Medicine; ATTEND Internal Medicine
DX: L03.115 Cellulitis of right lower limb (principal); M32.9 Systemic lupus erythematosus, unspecified; L97.319 Non-pressure chronic ulcer of right ankle with unspecified severity; L97.419 Non-pressure chronic ulcer of right heel and midfoot with unspecified severity; N39.0 Urinary tract infection, site not specified; B96.20 Unspecified Escherichia coli [E. coli] as the cause of diseases classified elsewhere
CPT/HCPCS: 80048; 80053; 80061; 80076; 81001; 81003; 83036; 85025; 85651; 86140; 86160; 87040; 87070; 87081; 87086; J0696; J1650; J3370; J7040; J7050